=== PATIENT | female | born 1955 | race Two or more races ===

== ENCOUNTER 2024-06-16 09:17 | Outpatient (AMB) | payer MEDICARE, SELFPAY ==
[2024-06-16 09:55] VITALS: BP 184/93; PULSE 74; RESP 18; TEMP 36.3; O2SAT 95; BMI 37.4
--- NOTE | 2024-06-16 09:55 | PD.ORTHCLVIS ---
Vital signs 06/16/24 09:55 Height 1.68 m Height Method Stated Weight 105.233 kg Weight Measurement Method Standing Scale BMI 37.4 BP 184/93 H Blood Pressure Source Automatic Cuff Blood Pressure Location Right Upper Arm Position Sitting Respiration 18 Pulse 74 Pulse Source Monitor Temp 97.3 F Temp Source Temporal Artery Scan Pulse Oximetry (%) 95 Oxygen Delivery Method Room Air Med/Allergies Allergies & Medications Allergies ciprofloxacin Allergy (Intermediate, Verified 06/16/24 09:58) Nausea vancomycin Allergy (Intermediate, Verified 06/16/24 09:58) Drowsy codeine Allergy (Unknown, Verified 06/16/24 09:58) morphine Allergy (Unknown, Verified 06/16/24 09:58) Penicillins Allergy (Unknown, Verified 06/16/24 09:58) Medication Reconciliation aspirin 81 mg tablet,delayed release 81 mg PO QDAY 06/16/24 [History Confirmed 06/16/24] carvedilol 3.125 mg tablet 3.125 mg PO BID 06/16/24 [History Confirmed 06/16/24] furosemide 40 mg tablet 40 mg PO QDAY 06/16/24 [History Confirmed 06/16/24] ibuprofen 800 mg tablet 800 mg PO Q8H 06/16/24 [History Confirmed 06/16/24] losartan 100 mg tablet 100 mg PO QDAY 06/16/24 [History Confirmed 06/16/24] Subjective Visit Visit for: new patient and knee Immunization / Flu Flu Vaccine in the Last 12 Months: No Flu Vaccine Exclusion Criteria: No Exclusion Criteria History of Present Illness Chief complaint: KNEE PAIN Date of injury / onset of symptoms: DOMENIC Moctezuma is a pleasant 68-year-old female who presents today for bilateral knee pain. She has had a very complicated history. 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 She did not need any chemo or radiation afterwards. She also had a open meniscectomy on the left side as well as arthroscopic surgery on the left. She reports bilateral knee pain. She takes ibuprofen has not had any injections Personal History Occupation: [employer] Red flag PMH: Blood thinners Pain Pain level (0-10): 9 Pain duration: COMES AND GOES Pain location: inside (medial), outside (lateral), anterior and posterior Pain quality: sharp, dull, aching, burning, shocking, electric and tingling Pain timing: increases with activity and stairs Associated signs & symptoms: weakness and stiffness Ambulatory data Ambulatory device: none Treatments Improvement with previous injections: No Improvement with PT: No Improvement with NSAIDS: n/a Review of Systems Review of Systems: All systems negative unless otherwise noted in HPI. Exam Exam Patient is in no acute distress and is cooperative with the examination today. Breathing is nonlabored. In no respiratory distress. Bilateral extremities were evaluated and demonstrates sensation intact to light touch. Palpable pedal pulses are present. No significant edema is present. Bilateral hips were examined. The patient has no pain with log roll of the hips. Internal rotation to 30 degrees and external rotation to 30 degrees is painless. Negative FADIR. The left knee was examined. The left knee is in valgus alignment. Range of motion from [0-115] degrees. Knee is stable to varus and valgus as well as AP translation with <5mm. Patient has a [negative] McMurrays. There is [no] pain with patellofemoral compression and [no] crepitus noted. The knee is [tender] to palpation Diffusely. The right knee was also examined. The right knee is in valgus alignment. Range of motion from [0-120] degrees. Knee is stable to varus and valgus as well as AP translation with <5mm. Patient has a [negative] McMurrays. There is [no] pain with patellofemoral compression and [no] crepitus noted. The knee is [tender] to palpation Diffusely. Patient has no x-rays to view today Assessment and Plan Problem List (1) Degenerative arthritis of knee, bilateral: Status: Acute Plan: Patient is a pleasant 60-year-old female with bilateral knee pain and bilateral knee arthritis. She has had a very complex surgical history in the past. She is not exactly sure what to make she had removed but she had a tumor removal in the past as well in her thigh. She reports the muscle was removed. She also had open meniscectomies on both knees. The scars are quite lateral and may affect surgery if needed. We will start by obtaining x-rays. I am very certain she has severe degenerative arthritis Advanced Care Planning Discussion Advance care planning discussed with:: patient Office Procedures GNS Level of Care Nursing/Assessment Patient Status: Established Patient Nursing Assessment/Reassesment: Medication Reconciliation, Update PMH in EMR and Vital Signs Coordination of Care: Complex Care and Chronic Disease 1-5, Education Complex Pt/Fam, Consent,records obtained, informed consent, Results/Orders obtained and Staff clarify orders Established Patient Charge Established Patient Point Assignment: 95 Established Patient Point Charge: EP Level 3 (80-115) Past Medical History Past Medical History Have you ever been diagnosed with any of the following: Cardiology Problems Congestive Heart Failure: No Hypertension: Yes Respiratory Problems Chronic Obstructive Pulmonary Disease (COPD): No Smoking: No Smoking Exposure: No Genital/Urinary Problems Renal Disease: No Musculoskeletal Problems Arthritis: Yes (in neck per pt) Endocrine Problems Diabetes Mellitus Type 1: No Diabetes Mellitus Type 2: No
== END 2024-06-16 10:11 | disposition home or self-care (01) ==
LOC: HODSRG 09:17
PROVIDERS: PCP Physician Assistant; Referring Provider Physician Assistant; Supervising Provider Orthopaedic Surgery Adult Reconstructive Orthopaedic Surgery; Visit Provider Orthopaedic Surgery Adult Reconstructive Orthopaedic Surgery
DX: M17.0 Bilateral primary osteoarthritis of knee (principal); M25.562 Pain in left knee; M25.561 Pain in right knee; I10 Essential (primary) hypertension
CPT/HCPCS: 99213; G0463

== ENCOUNTER 2025-05-13 09:53 | Outpatient (AMB) | payer MEDICARE, SELFPAY ==
[2025-05-13 10:13] VITALS: BP 145/87; PULSE 75; RESP 18; TEMP 36.6; O2SAT 96; BMI 38.3
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
== END 2025-05-13 10:30 | disposition home or self-care (01) ==
PROVIDERS: PCP Physician Assistant; Referring Provider Physician Assistant; Supervising Provider Orthopaedic Surgery Adult Reconstructive Orthopaedic Surgery; Visit Provider Orthopaedic Surgery Adult Reconstructive Orthopaedic Surgery
DX: M17.0 Bilateral primary osteoarthritis of knee (principal); M25.562 Pain in left knee; M25.561 Pain in right knee; M21.161 Varus deformity, not elsewhere classified, right knee; I99.8 Other disorder of circulatory system; I10 Essential (primary) hypertension
CPT/HCPCS: 20610; 99203; J1010; J2795; G0463

== ENCOUNTER 2025-08-17 09:06 | Outpatient (AMB) | payer MEDICARE, SELFPAY ==
[2025-08-17 09:36] VITALS: BP 123/84; PULSE 77; RESP 18; TEMP 36; O2SAT 92; BMI 38.7
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
[2025-08-17 09:47] VITALS: BP 123/84; PULSE 77; RESP 18; TEMP 36; O2SAT 92; BMI 38.7
== END 2025-08-17 10:06 | disposition home or self-care (01) ==
LOC: HODSRG 09:06
PROVIDERS: PCP Physician Assistant; Referring Provider Physician Assistant; Supervising Provider Orthopaedic Surgery Adult Reconstructive Orthopaedic Surgery; Visit Provider Orthopaedic Surgery Adult Reconstructive Orthopaedic Surgery
DX: M17.0 Bilateral primary osteoarthritis of knee (principal); M21.061 Valgus deformity, not elsewhere classified, right knee; M25.562 Pain in left knee; M25.561 Pain in right knee; I99.8 Other disorder of circulatory system
CPT/HCPCS: 20610; 99213; J1010; J2795; G0463